=== PATIENT | male | born 1955 | race Caucasian/White ===

== ENCOUNTER 2022-11-11 06:59 | Day surgery (SDC) | payer OTHER, MEDICARE, SELFPAY ==
[2022-11-11 07:34] VITALS: BP 148/73; PULSE 76; RESP 17; TEMP 35.9; O2SAT 99; BMI 19.6
[2022-11-11] MEDS: LACTATED RINGERS 1,000 ML 100 ML IV (07:52)
--- NOTE | 2022-11-11 07:58 | P.HP_ITS ---
History of Present Illness History of Present Illness Date Patient Seen: 11/11/22 Time Patient Seen: 07:58 Chief complaint: EGD Narrative: I reviewed the recent office note. He had duodenal ulcers and esophageal varices with 3 bands placed in January 2022. He is on iron therapy and reports this is constipating. [facility] Medical History Alcohol abuse Cirrhosis Cirrhosis of liver COPD (chronic obstructive pulmonary disease) Normal colonoscopy Surgical History History of esophagogastroduodenoscopy (EGD) History of hip surgery Social History Smoking Status: Former smoker alcohol intake: former Meds Home Medications and Allergies Home Medications Medication Instructions Recorded Confirmed Type FeroSul 325 mg PO DAILY 11/11/22 11/11/22 History furosemide 20 mg PO DAILY 11/11/22 11/11/22 History pantoprazole 40 mg PO DAILY 11/11/22 11/11/22 History spironolactone 100 mg PO DAILY 11/11/22 11/11/22 History Allergies Allergy/AdvReac Type Severity Reaction Status Date / Time No Known Drug Allergies Allergy Verified 11/11/22 07:51 Review of Systems Review of Systems ROS: Yes All systems reviewed with the patient and are negative except as otherwise documented Exam Vital Signs (past 8 hours): - 11/11/22 07:34 Temperature 96.7 F L Pulse Rate 76 Respiratory Rate 17 Blood Pressure 148/73 H Pulse Oximetry 99 Oxygen Delivery Method Room Air Oxygen Delivery Method Room Air Const General: cooperative HENMT Head: normal to inspection Eyes General: appearance normal, both eyes and all related structures Neck Neck: normal visual inspection Chest Chest: normal inspection of the chest Resp Effort & Inspection: normal respiratory effort Cardio Rate: regular rate GI Inspection: normal to inspection Skin General: no rashes or lesions noted Neuro General: patient alert and patient awake Extrem General: normal to inspection and no pedal edema Psych Appearance: grossly normal Assessment & Plan Assessment & Plan narrative: 67-year-old male with cirrhosis and varices. History of duodenal ulceration. Surveillance EGD and possible banding is pursued today.
--- NOTE | 2022-11-11 08:00 | PM.PREOP ---
Pre-operative Note Interval Note History & Physical reviewed/Exam performed by Physician: Yes Changes to H&P: No ASA Class (for procedural sedation): III
--- NOTE | 2022-11-11 09:06 | PM.OP.EGD ---
Operative Date/Time/Diagnoses Date of procedure: 11/11/22 Time of procedure: 09:08 Pre-op diagnosis: History of esophageal varices history of duodenal ulceration Post-op diagnosis: same Procedure & Clinicians Study performed: EGD Same procedure as scheduled: Yes Indications: History of esophageal varices history of duodenal ulceration Surgeon: Levi Bauer Procedure Notes SCOAP/Timeout: Done Procedure in detail: After the risks and benefits were explained, written and verbal informed consent was obtained. The patient was brought into the procedure room and placed into the left lateral decubitus position. Please see anesthesia notes for sedation details. The scope was introduced into the mouth through the bite block and advanced under direct visualization to the 2nd portion of the duodenum. The scope was slowly withdrawn carefully examining the mucosa for any defects or lesions. Retroflexed views were accomplished in the stomach. The stomach was decompressed, the scope was then removed from the patient who tolerated the procedure well. Sedation minutes: 21 Specimen(s): none sent Complications: none Impression: 1. Duodenum: No residual ulceration. There was a mild smooth stenosis that appears to probably represent healing from prior ulceration. No suggestion of any neoplasia. This did not impede passage of the scope from D1 to D2. 2. Stomach: No ulcers no outlet obstruction no mass lesions. No esophageal varices. Diffuse portal gastropathy was noted. 3. Esophagus: The squamocolumnar junction correlated with the top of the gastric folds. GEJ was at about 40 cm from the incisors. The patient had the intermittent appearance of medium-sized varices that did not fully flatten out with air insufflation. However at times with air insufflation the lumen was completely flattened. I attempted to place bands in the distal esophagus but when the banding device was connected and we suctioned up into the cup, quite clearly there was not enough variceal cushion to allow for banding. I had to release suction and ultimately elected to not place any bands. I did not see any high-risk areas Endoscopic diagnosis 1. Portal gastropathy 2. Mild duodenal stenosis 3. Small to medium esophageal varices Post-procedure Plan for aftercare: 1. Continue to follow along in GI clinic. 2. Repeat EGD for surveillance 12 months. Disposition: PACU
[2022-11-11 09:09] VITALS: BP 111/67; PULSE 75; RESP 26; TEMP 36.1; O2SAT 97
[2022-11-11 09:13] VITALS: BP 121/71; PULSE 69; RESP 20; O2SAT 98
[2022-11-11 09:18] VITALS: BP 120/73; PULSE 73; RESP 18; O2SAT 99
[2022-11-11 09:23] VITALS: BP 134/70; PULSE 70; RESP 20; TEMP 36.4; O2SAT 99
[2022-11-11 09:30] VITALS: BP 137/72; PULSE 65; RESP 19; TEMP 36.4; O2SAT 99
== END 2022-11-11 09:47 | disposition home or self-care (01) ==
PROVIDERS: Referring Provider Internal Medicine Gastroenterology; Visit Provider Internal Medicine Gastroenterology
PROC: 0DJ08ZZ Inspection of Upper Intestinal Tract, Via Natural or Artificial Opening Endoscopic (ICD-10-PCS; CPT 43235; principal; 2022-11-11 08:30)
DX: I85.10 Secondary esophageal varices without bleeding (principal); Z87.19 Personal history of other diseases of the digestive system; K31.9 Disease of stomach and duodenum, unspecified; K70.30 Alcoholic cirrhosis of liver without ascites; J44.9 Chronic obstructive pulmonary disease, unspecified; F41.9 Anxiety disorder, unspecified; F32.A Depression, unspecified; K31.5 Obstruction of duodenum
CPT/HCPCS: 43235; J2704

== ENCOUNTER → 2023-12-23 12:08 | Outpatient (CLI) | payer OTHER, MEDICARE, SELFPAY ==
--- NOTE | 2023-12-23 12:12 | DI.US.S_ITS ---
PROCEDURE: US ABDOMEN LIMITED INDICATIONS: CIRRHOSIS TECHNIQUE: Real-time focused scanning was performed of the liver, with image documentation. COMPARISON: None. FINDINGS: Margins of the liver are nodular. Is heterogeneity in the echo texture of the liver. Ill-defined cystic density is noted in the mid liver measuring 7 by 4 x 2 cm. This may represent a cluster of cysts however there are irregular margins and associated mass cannot be excluded. No ascites. IMPRESSION: Echo-pattern and nodularity of the liver consistent with cirrhosis A cystic density is seen in the right lobe of the liver. Recommendation: Dictated by: Claudio Valera M.D. on 12/23/2023 at 17:07 Approved by: Claudio Valera M.D. on 12/23/2023 at 17:12
== END ==
PROVIDERS: Referring Provider Internal Medicine Gastroenterology; Visit Provider Internal Medicine Gastroenterology
DX: K74.69 Other cirrhosis of liver (principal)
CPT/HCPCS: 76705

== ENCOUNTER → 2023-12-31 11:34 | Outpatient (CLI) | payer OTHER, MEDICARE, SELFPAY ==
--- NOTE | 2023-12-31 11:36 | DI.MRI.S_ITS ---
PROCEDURE: MR ABDOMEN WO/W CON INDICATIONS: LIVER LESION TECHNIQUE: Coronal HASTE, axial 2D FLASH in- and [id number]; axial breath-hold T2 FSE. Dynamic axial VIBE during the administration of contrast; post-contrast coronal VIBE or 2D FLASH with fat saturation from the hepatic dome to the iliac crests. Optional diffusion weighted imaging and ADC may be performed. COMPARISON: [facility], US, US ABDOMEN LIMITED, 12/23/2023, 12:21. FINDINGS: Image quality: Diagnostic. Lung bases: Unremarkable. Liver: Cirrhotic liver morphology. No observations of probably or definitely HCC. Patent portal vein. Gallbladder: Cholelithiasis without wall thickening or adjacent fat stranding to suggest acute cholecystitis. Biliary ducts: Dilation of the left-sided intrahepatic biliary tree. No mass at the confluence to explain the obstruction. Pancreas: No ductal dilation. Spleen: Size is within normal limits. Adrenal Glands: No adrenal nodules. Kidneys and Ureters: No hydronephrosis. No solid mass. No complex renal cystic lesion which requires follow up. Stomach and Bowel: Normal colonic caliber, without significant wall thickening. Peritoneum: No abnormal intraperitoneal fluid. No free air. Ventral Wall: No hernia. Abdominal Nodes: No retroperitoneal or mesenteric adenopathy by size criteria. Vessels: Aorta and inferior vena cava are normal in size. Bones: No aggressive osseous abnormality. IMPRESSION: Cirrhotic liver morphology. No observations of probably or definitely HCC. Intrahepatic biliary dilation of the left-sided biliary tree, corresponding to the cystic mass seen on comparison ultrasound. No mass at the transition point. Recommend short-term follow-up (6 months) liver MRI to ensure no interval change. Dictated by: Fredi Welch M.D. on 12/31/2023 at 15:00 Approved by: Fredi Welch M.D. on 12/31/2023 at 15:09
[2023-12-31 12:09] LABS: Estimated Glomerular Filt Rate > 60 mL/min (>60)
== END ==
LOC: MRI 11:35
PROVIDERS: Radiology Diagnostic Radiology; Referring Provider Internal Medicine Gastroenterology; Visit Provider Internal Medicine Gastroenterology
DX: K76.9 Liver disease, unspecified (principal); K80.20 Calculus of gallbladder without cholecystitis without obstruction; K83.8 Other specified diseases of biliary tract
CPT/HCPCS: 36415; 74183; 82565; A9579